=== PATIENT | male | born 1940 | race Caucasian/White ===

== ENCOUNTER 2020-03-19 08:43 | Outpatient (CLI) | payer MEDICARE, SELFPAY | END 2020-03-19 08:44 | disposition home or self-care (01) | LOC: ANHCOVIDDT 08:44 | PROVIDERS: PCP Internal Medicine; Visit Provider Internal Medicine Gastroenterology | DX: Z01.818 Encounter for other preprocedural examination (principal); Z11.59 Encounter for screening for other viral diseases | CPT/HCPCS: 87635; U0003 ==

== ENCOUNTER 2020-03-22 02:04 | Day surgery (SDC) | payer MEDICARE, SELFPAY ==
[2020-03-19 11:11] VITALS: BMI 24.4
[2020-03-22 07:54] VITALS: BP 135/75; PULSE 80; RESP 18; TEMP 36.6; O2SAT 100
--- NOTE | 2020-03-22 07:56 | WPDGICN ---
Assessment and Plan Assessment and plan (1) History of colon polyps: Code(s): Z86.010 - Personal history of colonic polyps Status: Acute Assessment and Plan: Surveillance colonoscopy advised at this time period has been 5 years since last exam. Colonoscopy at 5 year intervals is advised. (2) Right inguinal hernia: Code(s): K40.90 - Unilateral inguinal hernia, without obstruction or gangrene, not specified as recurrent Status: Acute Assessment and Plan: Patient now has some swelling in the right inguinal area previous hernia repair in this area was noted. Plan is for surgical follow-up. GI Consult Note Consult date/time: 03/22/20 07:56 HPI: Bentley Atkinson is a 79 year old male Seen in evaluation at the request Dr. Michel Boogie. Patient has a history of colon polyps. Presents today for follow-up colonoscopy. His current weight appetite bowel movements are normal. He denies abdominal pain he denies any bleeding. His bowel habits are regular. Last colonoscopy was in 2013. Family history is noncontributory patient's past history is significant for right inguinal hernia repair. Review of Systems Review of Systems: All systems reviewed & are unremarkable except as noted in HPI and below Meds Home Medications and Allergies Home Medications Medication Instructions Recorded Confirmed Type ascorbic acid (vitamin C) [Vitamin 1 g PO DAILY 03/19/20 03/19/20 History C] ibuprofen 600 mg PO PRN PRN 03/19/20 03/19/20 History icosapent ethyl [Vascepa] 1 g PO BID 03/19/20 03/19/20 History lisinopril 20 mg PO BID 03/19/20 03/19/20 History simvastatin 20 mg PO HS 03/19/20 03/19/20 History Allergies Allergy/AdvReac Type Severity Reaction Status Date / Time No Known Allergies Allergy Mild Unverified 03/22/20 07:51 Exam Narrative: Exam Narrative: Physical exam reveals patient to be alert. Oriented x3. He is anicteric. Lungs are clear to auscultation and percussion. Heart is without murmur or extra sounds. Abdominal exam bowel sounds are present soft nontender with no organomegaly. He had his have some mild swelling in the right inguinal area. Digital external rectal exam is normal.
[2020-03-22] MEDS: LACTATED RINGERS 1,000 ML 150 ML IV CONT (08:21)
--- NOTE | 2020-03-22 08:28 | WPDANESEPPF ---
Anes - Initial Pre Proc Eval Procedure: Operation Date: 03/22/20 09:00 Proposed Procedures p Screening Colonoscopy - Federico Taveras MD Date/Time: 03/22/20 08:28 Surgeon: Federico Taveras MD Pre Op Diagnosis: Hx Colon Polyps Patient Data Age: 79 Gender: M Height: 1.75 m Weight: 72.4 kg Last Vital Signs Temp 36.6 C 03/22/20 07:54 Pulse 80 03/22/20 07:54 Resp 18 03/22/20 07:54 BP 135/75 03/22/20 07:54 Pulse Ox 100 03/22/20 07:54 Allergies Allergy/AdvReac Type Severity Reaction Status Date / Time No Known Allergies Allergy Mild Unverified 03/22/20 07:51 Home Medications Medication Instructions Recorded Confirmed Type ascorbic acid (vitamin C) [Vitamin 1 g PO DAILY 03/19/20 03/19/20 History C] ibuprofen 600 mg PO PRN PRN 03/19/20 03/19/20 History icosapent ethyl [Vascepa] 1 g PO BID 03/19/20 03/19/20 History lisinopril 20 mg PO BID 03/19/20 03/19/20 History simvastatin 20 mg PO HS 03/19/20 03/19/20 History Patient hx anesthesia problems: none Family hx anesthesia problems: none [facility] Past Medical History Medical History (Updated 03/22/20 @ 08:28 by Jaime Acosta DO) History of gastric ulcer History of skin cancer Hyperlipidemia Hypertension Social History Social History (Updated 03/22/20 @ 08:28 by Jaime Acosta DO) Smoking status: Former smoker Anes - Eval Final PreProcedure Day of Procedure 03/22/20 08:28 Patient weight: normal Heart: regular rate and rhythm Lungs: clear to auscultation and normal air movement Airway: Mallampati scale class II Neurological: alert and oriented Last oral intake: >/= 8 hours ASA classification: III Emergent: no Anesthetic plan: proceed Anesthesia type and monitoring: general GIVS and standard monitoring Informed Consent: The patient's anesthetic plan and its attendant risks and benefits were discussed with the patient/family/POA. Questions were solicited and answers provided to the satisfaction of the patient/family/POA.
[2020-03-22 09:14] VITALS: BP 87/55; PULSE 63; RESP 16; O2SAT 98
[2020-03-22 09:24] VITALS: BP 91/55; PULSE 61; RESP 24; O2SAT 98
[2020-03-22 09:34] VITALS: BP 110/65; PULSE 63; RESP 21; O2SAT 100
[2020-03-22 09:44] VITALS: BP 130/79; PULSE 55; RESP 20; O2SAT 100
== END 2020-03-22 09:59 | disposition home or self-care (01) ==
PROVIDERS: PCP Internal Medicine; Visit Provider Internal Medicine Gastroenterology
PROC: 0DJD8ZZ Inspection of Lower Intestinal Tract, Via Natural or Artificial Opening Endoscopic (ICD-10-PCS; CPT 45378; principal; 2020-03-22 09:00)
DX: Z12.11 Encounter for screening for malignant neoplasm of colon (principal); D12.3 Benign neoplasm of transverse colon; D12.2 Benign neoplasm of ascending colon; K63.5 Polyp of colon; K64.8 Other hemorrhoids; I10 Essential (primary) hypertension; E78.5 Hyperlipidemia, unspecified; Z87.11 Personal history of peptic ulcer disease; Z85.828 Personal history of other malignant neoplasm of skin; Z87.891 Personal history of nicotine dependence
CPT/HCPCS: 45385; 87635; 88305; C9803; J2704; J7120; U0003

== ENCOUNTER 2021-02-04 13:33 | Outpatient (CLI) | payer MEDICARE, SELFPAY | END 2021-02-04 13:34 | disposition home or self-care (01) | LOC: ANHAUDASC 13:35 | PROVIDERS: PCP Internal Medicine; Visit Provider Nurse Practitioner Family | DX: H90.3 Sensorineural hearing loss, bilateral (principal) | CPT/HCPCS: 92557; 92567 ==

== ENCOUNTER 2021-04-08 08:00 | Outpatient (RCR) | payer MEDICARE, SELFPAY | END 2021-06-04 23:59 | disposition home or self-care (01) | LOC: ANHAUDASC 08:00 | PROVIDERS: PCP Internal Medicine; Visit Provider Nurse Practitioner Family | DX: Z46.1 Encounter for fitting and adjustment of hearing aid (principal) | CPT/HCPCS: 99199; V5261 ==

== ENCOUNTER 2021-06-07 12:11 | Emergency (ER) | payer MEDICARE, SELFPAY ==
--- NOTE | ~2021-06-07 | XR_ITS ---
EXAMINATION: XR wrist RT min 3V DATE: 06/07/2021 13:07 INDICATION: Ulnar-sided right wrist pain post twisting injury TECHNIQUE: Posteroanterior, ulnar deviation, oblique, and lateral views of the right wrist were obtai narcisa. COMPARISON: none FINDINGS: 2 mm ulnar positive variance. Likely old healed fracture of the distal right radius with neutral tilt of the distal articular surface. Additional likely chronic nonunited, nondisplaced ulnar styloid avu lsion fracture. Alignment is otherwise normal. No acute fracture identified. Polyarticular osteoarthr itis, severe at the first carpometacarpal and second and third metacarpophalangeal joints, moderate s everity at the triscaphe joint and mild at the distal radioulnar, radiocarpal, first metacarpophalang eal and first interphalangeal joints. There are some flattening of the articular surfaces at the head s of the second and third metacarpals. Diffuse osteopenia. Soft tissues are unremarkable. IMPRESSION: 1. 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 No acute osseous abnormality. Reviewed, dictated and finalized at location A. IMPRESSION: 1. 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 No acute osseous abnormality.
[2021-06-07 12:14] VITALS: BP 159/84; PULSE 84; RESP 16; TEMP 37; O2SAT 98
--- NOTE | 2021-06-07 13:27 | ED.UPPEXIN ---
HPI - Extremity Injury (Upper) General Chief Complaint: Extremity Injury, Upper Stated Complaint: right wrist injury Time Seen by Provider: 06/07/21 12:18 Source: RN notes reviewed History of Present Illness HPI narrative: Patient presents to emergency room from home for right wrist pain. Patient states proximally 2 hours prior to arrival he was using a power saw when it became locked and twisted his wrist he denies directly striking the wrist but just states it was twisted and had pain in the lateral wrist since that time he denies any other injury denies any numbness or tingling in the extremity states he took no medication for pain Related Data Home Medications Medication Instructions Recorded Confirmed ascorbic acid (vitamin C) [Vitamin 1 g PO DAILY 03/19/20 03/19/20 C] ibuprofen 600 mg PO PRN PRN 03/19/20 03/19/20 icosapent ethyl [Vascepa] 1 g PO BID 03/19/20 03/19/20 lisinopril 20 mg PO BID 03/19/20 03/19/20 simvastatin 20 mg PO HS 03/19/20 03/19/20 Allergies Allergy/AdvReac Type Severity Reaction Status Date / Time No Known Allergies Allergy Mild Verified 06/07/21 13:18 Review of Systems Review of Systems: Gen.: Denies fevers or chills Musculoskeletal: See HPI Neuro: Denies numbness, tingling, weakness Skin: Denies rash Endo: Denies DM PMFSH Past Medical History Medical History History of gastric ulcer History of skin cancer Hyperlipidemia Hypertension Social History Social History Smoking status: Former smoker Exam Narrative: APPEARANCE: No acute distress, nontoxic, resting in bed Eyes: EOMI HEENT: Normocephalic, atraumatic, RESPIRATORY: No respiratory distress MUSCULOSKELETAl: Tender palpation of the right lateral wrist with mild swelling present no tenderness over the medial wrist full flexion-extension of the wrist with pain with extension of the wrist full flexion-extension of all 5 MCP joints, radial pulse 2+ neurovascular intact NEURO: Awake and alert. Following commands, speech normal, no focal deficits SKIN:: Warm, dry. Normal Color no rash or lesions Course Course Emergency Course: Discussed with patient results of workup and diagnosis. Discussed need for follow-up with primary care, proper use of medication, and reasons to return to the emergency department. Patient understands and agrees to current treatment plan Vital Signs Vital signs: Vital Signs Temperature 98.6 F 06/07/21 12:14 Pulse Rate 84 06/07/21 12:14 Respiratory Rate 16 06/07/21 12:14 Blood Pressure 159/84 H 06/07/21 12:14 Pulse Oximetry 98 06/07/21 12:14 Temperature 98.6 F 06/07/21 12:14 Pulse Rate 84 06/07/21 12:14 Respiratory Rate 16 06/07/21 12:14 Blood Pressure 159/84 H 06/07/21 12:14 Pulse Oximetry 98 06/07/21 12:14 MDM - Extremity Injury (Upper) Imaging Data Radiologist's impression: ITS Impressions Wrist X-Ray 06/07/21 13:11 IMPRESSION: 1. 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 No acute osseous abnormality. Discharge Plan Discharge Clinical Impression: Right wrist sprain Patient Disposition: Home, Self-Care Condition: Stable Instructions: Antibiotic Form, Wrist Sprain (ED) Additional Instructions: Return for increasing pain numbness or tingling in the extremities or any other symptoms of concern Prescriptions: New ibuprofen [IBU] 600 mg tablet 600 mg PO Q6H PRN (Reason: pain) Qty: 12 RF: 0 No Action ascorbic acid (vitamin C) [Vitamin C] 1,000 mg Tablet 1 g PO DAILY RF: 0 lisinopril 20 mg tablet 20 mg PO BID RF: 0 simvastatin 20 mg tablet 20 mg PO HS RF: 0 ibuprofen 600 mg tablet 600 mg PO PRN PRN (Reason: Pain) RF: 0 icosapent ethyl [Vascepa] 1 gram capsule 1 g PO BID RF: 0 Follow-up/Referrals: Keagan,MD Michel [P
[2021-06-07] MEDS: IBUPROFEN 600 MG TABLET PO (13:47)
[2021-06-07 14:00] VITALS: BP 128/82; PULSE 80; RESP 18; O2SAT 100
== END 2021-06-07 14:00 | disposition home or self-care (01) ==
LOC: ANHED 13:45
PROVIDERS: Emergency Provider Emergency Medicine; PCP Internal Medicine
DX: S63.501A Unspecified sprain of right wrist, initial encounter (principal); E78.5 Hyperlipidemia, unspecified; I10 Essential (primary) hypertension; Z87.891 Personal history of nicotine dependence; Z85.828 Personal history of other malignant neoplasm of skin; M19.031 Primary osteoarthritis, right wrist; X50.9XXA Other and unspecified overexertion or strenuous movements or postures, initial encounter
CPT/HCPCS: 73110; 99283; A9270

== ENCOUNTER 2021-10-03 10:52 | Outpatient (RCR) | payer SELFPAY | END 2022-01-01 23:59 | disposition home or self-care (01) | LOC: ANHAUDASC 10:52 | PROVIDERS: PCP Internal Medicine; Visit Provider Internal Medicine | DX: Z46.1 Encounter for fitting and adjustment of hearing aid (principal) | CPT/HCPCS: 99199 ==

== ENCOUNTER 2023-10-21 12:50 | Outpatient (RCR) | payer MEDICARE, SELFPAY | END 2024-01-19 23:59 | disposition home or self-care (01) | LOC: ANHAUDASC 12:50 | PROVIDERS: PCP Internal Medicine; Visit Provider Internal Medicine | DX: Z46.1 Encounter for fitting and adjustment of hearing aid (principal) | CPT/HCPCS: V5014 ==

== ENCOUNTER 2023-12-12 09:44 | Emergency (ER) | payer MEDICARE, SELFPAY ==
[2023-12-12] VITALS (11 sets, daily range): BP systolic 97–138; BP diastolic 58–77; PULSE 57–75; RESP 13–24; TEMP 36.6; O2SAT 98–100
--- NOTE | ~2023-12-12 | CT_ITS ---
EXAMINATION: CT brain wo con INDICATION: Headache COMPARISON: None TECHNIQUE: Standard unenhanced head CT. The dose-length product (DLP) was 605.33 mGy-cm. The mA was a djusted according to patient size. Iterative reconstruction technique was employed. FINDINGS: No acute intraparenchymal hemorrhage. No evidence of mass lesion. No evidence of acute infa rction. There is moderate periventricular and subcortical hypodensity probably related to small vesse l ischemic disease. There is mild prominence of the sulci and ventricles related to cerebral atrophy. Intracranial calcified cerebral atherosclerosis is noted. No extra-axial collections. No mass effect or midline shift. The orbits and soft tissues are unremarkable. The visualized sinuses and mastoid a ir cells are well aerated. IMPRESSION: 1. No acute intracranial abnormality. 2. Age related findings. Reviewed, dictated and finalized at location F. K UP ASSEMBLER
--- NOTE | ~2023-12-12 | XR_ITS ---
EXAMINATION: XR chest 1V portable INDICATION: Transient alteration of awareness TECHNIQUE: Portable AP chest at 1215 hours COMPARISON: None available FINDINGS: There are minimal airspace opacities of the lung bases. No pleural effusion or pneumothorax . The cardiac mediastinal silhouette is normal. There is ectasia of the thoracic aorta. IMPRESSION: 1. Minimal airspace opacities of the lung bases, consistent with atelectasis versus pneumonia. Reviewed, dictated and finalized at location F. T OPERATIONS VICE PRESIDENT IMPRESSION: 1. Minimal airspace opacities of the lung bases, consistent with atelectasis ve rsus pneumonia.
--- NOTE | 2023-12-12 09:56 | ECG_ITS ---
Measurements Intervals [place] Rate: 65 P: 62 NE: 225 QRS: 15 QRSD: 80 T: 46 QT: 394 QTc: 411 Interpretive Statements SINUS RHYTHM WITH FIRST DEGREE AV BLOCK ABNORMAL ECG NO PREVIOUS ECG AVAILABLE FOR COMPARISON Electronically Signed On 12-12-2023 10:21:08 FORESTRY HUNTER by Elkin Russell M.D.
[2023-12-12 10:25] LABS: Hematocrit 44.6 % (42.0-52.0); Mean Corpuscular HGB Conc 31.4 g/dl (32-36); Mean Corpuscular Volume 86.1 fl (80-100); Mean Platelet Volume 10.7 fl (7.4-10.4); Platelet Count Result 144 k/mm3 (150-375); Red Blood Count 5.18 M/mm3 (4.6-6.20); Red Cell Distribution Width 14.9 % (11.5-14.5); White Blood Count 5.2 K/mm3 (4.5-10.0)
[2023-12-12 10:41] LABS: Alanine Aminotransferase 21 U/L (6-50); Albumin Level 3.9 g/dL (3.5-5.1); Alkaline Phosphatase 72 U/L (38-126); Anion Gap 7 mmol/L (8-16); Aspartate Amino Transferase 31 U/L (17-59); Bilirubin,Total 0.5 mg/dL (0.2-1.3); Blood Urea Nitrogen 22 mg/dL (9-20); Calcium 9.1 mg/dL (8.4-10.2); Carbon Dioxide 26 mmol/L (22-30); Chloride 104 mmol/L (98-107); Estimated CRCL calculation 48 ml/min; Estimated Glomerular Filt Rate > 60; Glucose 105 mg/dL (65-110); Potassium 4.1 mmol/L (3.4-5.0); Sodium 137 mmol/L (137-145)
[2023-12-12 10:49] LABS: Band Neutrophils Percent 2 % (0-6); Eosinophils Absolute Manual 0.05 K/mm3 (0.02-0.5); Eosinophils Percent Manual 1 % (0-4); Lymphocytes Absolute Manual 1.82 K/mm3 (1.1-4.5); Monocytes Absolute Manual 1.14 K/mm3 (0.1-0.90); Monocytes Percent Manual 22 % (3-9); Neutrophils Absolute Manual 2.18 K/mm3 (1.3-6.7); Neutrophils Percent Manual 40 % (46-73); Schistocytes None Seen (NORMAL); Total Cells Counted 100
[2023-12-12 10:50] LABS: Large Platelets Present
[2023-12-12 12:32] LABS: Magnesium 2.5 mg/dL (1.6-2.3)
--- NOTE | 2023-12-12 12:36 | ED.SYNCOPE ---
HPI - Syncope General Chief Complaint: Syncope Stated Complaint: syncopal event Time Seen by Provider: 12/12/23 12:01 Source: patient and family Limitations: no limitations and dementia History of Present Illness HPI narrative: Patient is an 83-year-old male presents to the emergency department complaining of syncope. Patient states around 7:30 a.m. this morning he was sitting down watching the news any got up to go to the bedroom and while walking to the bedroom he began to feel lightheaded and proceeded to pass out, was in the other room and heard him fall to the ground, patient promptly woke back up and immediate return to his baseline, no seizure activity reported, no history of seizures. Patient has been ambulatory since the event. Patient denies any pain anywhere. Patient denies any recent illness, new or change medications, chest pain, difficulty breathing, abdominal pain, nausea, vomiting, diarrhea, melena, hematochezia, urinary discomfort, numbness, weakness, lower extremity swelling, sore throat, nasal congestion, fever, headache, vision changes, difficulty swelling, dysphonia, confusion. Patient admits to having darker colored urine and has been not adequately being hydrated the patient is to consider compartment coffee prior to going out and drinks caffeine often. Patient is to history of some the past she had 3 episodes last year around this time was found to have a bleeding ulcer that was considered to be the likely cause. Patient denies history of abnormal heart rhythms but does have a history of right Holter monitor when he was having syncopal episodes in the past. Patient admits to small scrape over his left elbow without any significant discomfort. Patient does not know when his last tetanus shot was. Related Data Home Medications Medication Instructions Recorded Confirmed donepezil 10 mg tablet mg 12/12/23 ferrous sulfate 325 mg (65 mg mg 12/12/23 iron) tablet lisinopril 20 mg tablet mg 12/12/23 simvastatin 20 mg tablet mg 12/12/23 12/12/23 Allergies Allergy/AdvReac Type Severity Reaction Status Date / Time aspirin Allergy Ulcers Verified 12/12/23 10:00 Review of Systems Review of Systems: A 10 system review of systems was completed on the patient and is negative except for what is stated in the HPI. Nursing and ancillary documentation was reviewed. [facility] Past Medical History Medical History History of gastric ulcer History of skin cancer Hyperlipidemia Hypertension Social History Social History Smoking status: Former smoker Comments At time of signature, I have reviewed and agree with nursing past medical, surgical, social and family history unless otherwise noted. Please see the nursing chart for further information. There is no relevant family history pertinent to the presenting complaint. Exam Narrative: CONST: No acute distress. Well nourished. HENMT: Head is normocephalic and atraumatic. Dry mucous membranes. No posterior oropharynx erythema. EYES: No conjunctival icterus, injection, or pallor. PERRL. No nystagmus. NECK: No meningeal signs. No JVD. RESP: Able to speak in full sentences. Normal respiratory effort. CTAB. CARDIO: Regular rate. Regular rhythm. 2+ DP and radial pulses bilaterally. GI: Nondistended. No tenderness to palpation. Soft. : No CVA tenderness to palpation. SKIN: No rashes. Small hemostatic abrasion present over the left elbow without bony tenderness to palpation or decreased range of motion. NEURO: Oriented x3. Moves all extremities. No focal neurological deficits. Motor strength is 5/5 in all 4 extremities. Sensation intact to light touch throughout all 4 extremities. Cranial nerves 2-12 intact. EXTREM/MSK/BACK: No pedal edema. No midline vertebral tenderness to palpation or step-offs. PSYCH: Normal affect. Cou
[2023-12-12 12:38] LABS: Appearance Urine Clear (Clear); Bilirubin Urine Negative (Negative); Blood Urine Negative (Negative); Color Urine Yellow (Yellow); Glucose Urine UA Negative (Negative); Ketones Urine Negative (Negative); Leukocyte Esterase Ur Negative LEU/UL (Negative); Nitrate Urine Negative (Negative); Protein Urine Negative (Negative); Specific Grav Ur 1.005 (1.001-1.035); Urobilinogen Urine 0.2 mg/dL (<2.0)
[2023-12-12 12:41] LABS: NT Pro B Type Natriuretic Pept 169 pg/mL (19.9-100)
[2023-12-12 12:42] LABS: Add Urine Microscopic? NO
[2023-12-12 12:47] LABS: Troponin I < 0.012 ng/mL (0.000-0.034)
[2023-12-12] MEDS: SODIUM CHLORIDE 0.9% IV 1,000 ML 999 ML IV CONT (12:49)
[2023-12-12] MEDS: TETANUS,DIPHTHERIA,AC PERTUSSIS ADULT (0.5 ML) BOOSTRIX IM (12:54)
--- NOTE | 2023-12-12 12:56 | PC.NURSE ---
Pt to CT scan via stretcher at this time.
[2023-12-12 13:13] LABS: Influenza A QL RT-PCR Negative (Negative); Influenza B QL RT-PCR Negative (Negative); RSV RNA, RT-PCR Negative (Negative); SARS-CoV-2 RNA PCR Negative (Negative)
== END 2023-12-12 14:37 | disposition home or self-care (01) ==
PROVIDERS: Emergency Medicine; Emergency Provider Student in an Organized Health Care Education/Training Program; PCP Internal Medicine
DX: R55 Syncope and collapse (principal); S51.012A Laceration without foreign body of left elbow, initial encounter; E78.5 Hyperlipidemia, unspecified; I10 Essential (primary) hypertension; Z79.899 Other long term (current) drug therapy; Z85.828 Personal history of other malignant neoplasm of skin; Z87.891 Personal history of nicotine dependence; Z23 Encounter for immunization; Z20.822 Contact with and (suspected) exposure to COVID-19; W19.XXXA Unspecified fall, initial encounter
CPT/HCPCS: 36415; 70450; 71045; 80053; 81003; 83735; 83880; 84484; 85025; 87637; 90471; 90715; 93005; 96360; 99284; J7030

== ENCOUNTER 2024-02-11 10:50 | Outpatient (CLI) | payer MEDICARE, SELFPAY | END 2024-02-11 10:51 | disposition home or self-care (01) | LOC: ANHAUDASC 10:51 | PROVIDERS: PCP Internal Medicine; Visit Provider Otolaryngology | DX: H91.90 Unspecified hearing loss, unspecified ear (principal) | CPT/HCPCS: 99199 ==

== ENCOUNTER 2024-02-20 00:32 | Emergency (ER) | payer MEDICARE, SELFPAY ==
--- NOTE | ~2024-02-20 | XR_ITS ---
XR chest 2V 02/20/2024 01:20 Indication: Chest pain Procedure: 2 view chest Comparison: 12/12/2023 Findings: The lungs are hyperinflated which is consistent with, but not diagnostic of chronic obstruc tive pulmonary disease. No focal air space disease, pulmonary edema, pleural effusion or suspected pn eumothorax. There is atherosclerosis and ectasia of the aorta. There is evidence of chronic granuloma tous disease. Impression: 1: No acute cardiopulmonary disease. Reviewed, dictated and finalized at location A. Impression: 1: No acute cardiopulmonary disease.
[2024-02-20 00:48] VITALS: BP 163/78; PULSE 66; RESP 18; TEMP 36.1; O2SAT 100
--- NOTE | 2024-02-20 00:56 | ECG_ITS ---
SEE SCANNED COPY FOR CONFIRMED REPORT MTDD
[2024-02-20 01:07] LABS: Hematocrit 46.5 % (42.0-52.0); Hemoglobin 14.8 g/dL (14.0-18.0); Mean Corpuscular HGB Conc 31.8 g/dl (32-36); Mean Corpuscular Hemoglobin 27.4 pg (26-34); Mean Corpuscular Volume 86.1 fl (80-100); Mean Platelet Volume 9.8 fl (7.4-10.4); Platelet Count Result 143 k/mm3 (150-375); Red Cell Distribution Width 14.3 % (11.5-14.5); White Blood Count 5.1 K/mm3 (4.5-10.0)
[2024-02-20 01:21] LABS: Alanine Aminotransferase 18 U/L (6-50); Albumin Level 4.4 g/dL (3.5-5.1); Alkaline Phosphatase 85 U/L (38-126); Anion Gap 9 mmol/L (4-12); Aspartate Amino Transferase 28 U/L (17-59); Bilirubin,Total 0.5 mg/dL (0.2-1.3); Blood Urea Nitrogen 17 mg/dL (9-20); Calcium 9.5 mg/dL (8.4-10.2); Carbon Dioxide 25 mmol/L (22-30); Chloride 107 mmol/L (98-107); Estimated CRCL calculation 44 ml/min; Estimated Glomerular Filt Rate > 60; Glucose 104 mg/dL (65-110); Lipase 94 U/L (23-300); Potassium 4.2 mmol/L (3.4-5.0); Sodium 141 mmol/L (137-145)
[2024-02-20 01:22] LABS: INR 1.1; Prothrombin Time 14.3 Seconds (11.1-14.7)
[2024-02-20 01:23] LABS: Partial Thromboplastin Time 40.2 Seconds (22.3-36.8)
[2024-02-20 01:32] LABS: Band Neutrophils Percent 3 % (0-6); Basophils Absolute Manual 0.05 K/mm3 (0.0-0.1); Basophils Percent Manual 1 % (0-1); Eosinophils Percent Manual 2 % (0-4); Lymphocytes Absolute Manual 1.93 K/mm3 (1.1-4.5); Lymphocytes Percent Manual 38 % (18-44); Monocytes Absolute Manual 1.42 K/mm3 (0.1-0.90); Monocytes Percent Manual 28 % (3-9); Neutrophils Absolute Manual 1.58 K/mm3 (1.3-6.7); Neutrophils Percent Manual 28 % (46-73); Total Cells Counted 100
[2024-02-20 01:33] LABS: Anisocytosis 1+; Ovalocytes 1+; Platelet Estimate Slightly Decreased (Adequate); Schistocytes None Seen; Troponin I < 0.012 ng/mL (0.000-0.034)
--- NOTE | 2024-02-20 01:45 | ED_ITS ---
HPI - Arrhythmia/Palpitations General Chief Complaint: Chest Pain Stated Complaint: chest pain Time Seen by Provider: 02/20/24 01:17 History of Present Illness HPI narrative: This is an 83-year-old male, with history of hypertension, who presents emergency department complaining of palpitations. The patient states he was singing karaoke and drinking caffeinated coffee this evening, when after lying down he felt his heart racing. He denies associated pain though had some nausea. He denies lightheadedness or difficulty breathing. He denies any recent change in in his medication or recent illness. He has no other complaints at this time. Related Data Home Medications Medication Instructions Recorded Confirmed donepezil 10 mg tablet mg 12/12/23 02/11/24 ferrous sulfate 325 mg (65 mg mg 12/12/23 02/11/24 iron) tablet lisinopril 20 mg tablet mg 12/12/23 02/11/24 simvastatin 20 mg tablet mg 12/12/23 02/11/24 aspirin 81 mg tablet,delayed 81 mg PO DAILY 02/11/24 02/11/24 release memantine 10 mg tablet 10 mg PO QPM 02/11/24 02/11/24 Allergies Allergy/AdvReac Type Severity Reaction Status Date / Time aspirin Allergy Ulcers Verified 02/11/24 12:05 Review of Systems Review of Systems: CONSTITUTIONAL: Denies fever, chills, or sweats. ENT: Denies rhinorrhea, congestion, sore throat, or otalgia. CARDIOVASCULAR: Palpitations. Denies chest pain, or edema. RESPIRATORY: Denies cough or dyspnea. GASTROINTESTINAL: Denies abdominal pain, nausea, vomiting, or diarrhea. GENITOURINARY: Denies dysuria or hematuria. SKIN: Denies rash or itching. MUSCULOSKELETAL: Denies back pain, joint pain, or myalgia. NEUROLOGIC: Denies headache, numbness, dizziness, or weakness. PSYCHIATRIC: Denies anxiety or depression. [facility] Past Medical History Medical History History of gastric ulcer History of skin cancer Hyperlipidemia Hypertension Social History Social History Social History: Caffeine- daily Smoking status: Never smoker Alcohol intake: never Substance use: never Substance use type: does not use Lack of Transportation: No Lack of Food: Never True Current Housing: I Have Housing Concerned About Future Housing: No Difficulty Paying Gas/Electric Bills: No Difficulty Paying for Meds: No Currently Unemployed: No Education: High School Diploma/GED Difficulty w/ Childcare or Family Care: No Living arrangements: with family Occupation/Education: retired Exam Narrative: GENERAL: Well-developed, well-nourished, and in no acute distress. HEAD: Normocephalic, atraumatic. EYES: PERRLA and EOMI. Xanthelasma ENT: Nares clear, no rhinorrhea or epistaxis. Mucous membranes moist. Oropharynx without tonsillar hypertrophy exudate or other lesions. NECK: Supple. No adenopathy or masses. No carotid bruits or JVD CHEST: Clear to auscultation. No respiratory distress. No wheezes rales or rhonchi HEART: Regular rate and rhythm. No murmur heard. Normal peripheral pulses. ABDOMEN: Soft, nontender, nondistended, normal active bowel sounds. EXTREMITIES: Normal range of motion. No edema. SKIN: Warm, dry, no rash. NEURO: Alert and oriented x3. No focal deficit. Moving all 4 limbs spontaneously PSYCH: Normal mood and affect. Course Course Emergency Course: 04:30 - CBC unremarkable. Chemistries demonstrate mildly elevated magnesium of 2.5 but otherwise unremarkable. Coags demonstrate slightly elevated PTT of 40. EKG not concerning for ischemia. Troponin negative x2. Chest x-ray by my aeration not concerning for acute cardiopulmonary process. There appeared to be increased hilar densities, that have not changed compared to previous x-rays. I suspect the patient's symptoms are related to palpitations from excessive caffe ine use. After observation in the emergency department the patient felt improved and had no concerning findings on a event specialist food demonstrator. Will discharge. I discussed the findings and recommendations with the patient. Discussed return and emergency precautions including signs/symptoms of ACS respiratory distress. The patient voiced understanding and agreement with the plan. All questions answered to his satisfaction. Vital Signs Vital signs: Vital Signs Temperature 97 F L 02/20/24 00:48 Pulse Rate 66 02/20/24 00:48 Respiratory Rate 18 02/20/24 00:48 Blood Pressure 163/78 H 02/20/24 00:48 Pulse Oximetry 100 02/20/24 00:48 Oxygen Delivery Room Air 02/20/24 00:48 Temperature 97 F L 02/20/24 00:48 Pulse Rate 58 L 02/20/24 02:55 Respiratory Rate 16 02/20/24 02:55 Blood Pressure 113/65 02/20/24 02:55 Pulse Oximetry 96 02/20/24 02:55 Oxygen Delivery Room Air 02/20/24 00:48 MDM - Arrhythmia/Palpitations MDM Narrative Medical decision making narrative: Plan: Labs, imaging, EKG, cardiac monitoring, reassess Differential Diagnosis Differential diagnosis: Likely palpitations, sinus tachycardia, artial fibrillation and other (Arrhythmia, caffeine side-effect, pneumothorax, metabolic abnormality, other) Lab Data 02/20/24 00:58 02/20/24 00:58 Labs: Lab Results 02/20/24 02/20/24 Range/Units 00:58 03:55 WBC 5.1 (4.5-10.0) K/mm3 RBC 5.40 (4.6-6.20) M/mm3 Hgb 14.8 (14.0-18.0) g/dL Hct 46.5 (42.0-52.0) % MCV 86.1 (80-100) fl MCH 27.4 (26-34) pg MCHC 31.8 L (32-36) g/dl RDW 14.3 (11.5-14.5) % Plt Count 143 L (150-375) k/mm3 MPV 9.8 (7.4-10.4) fl Immature Gran % (Auto) Not Reportable Neut % (Auto) Not Reportable Lymph % (Auto) Not Reportable [place] % (Auto) Not Reportable Eos % (Auto) Not Reportable Baso % (Auto) Not Reportable Lymph # (Auto) Not Reportable [place] # (Auto) Not Reportable Eos # (Auto) Not Reportable Baso # (Auto) Not Reportable Abs Immat Gran (auto) Not Reportable Absolute Neuts (auto) Not Reportable Absolute Nucleated RBC Not Reportable Total Counted 100 Neutrophils % (Manual) 28 L (46-73) % Band Neutrophils % 3 (0-6) % Lymphocytes % (Manual) 38 (18-44) % Monocytes % (Manual) 28 H (3-9) % Eosinophils % (Manual) 2 (0-4) % Basophils % (Manual) 1 (0-1) % Nucleated RBC % Not Reportable Abs Neuts (Manual) 1.58 (1.3-6.7) K/mm3 Abs Lymphs (Manual) 1.93 (1.1-4.5) K/mm3 Abs Monocytes (Manual) 1.42 H (0.1-0.90) K/mm3 Absolute Eos (Manual) 0.10 (0.02-0.50) K/mm3 Abs Basophils (Manual) 0.05 (0.0-0.1) K/mm3 Platelet Estimate Slightly decreased (Adequate) Anisocytosis 1+ Ovalocytes 1+ Schistocytes None seen PT 14.3 (11.1-14.7) Seconds INR 1.1 APTT 40.2 H (22.3-36.8) Seconds Sodium 141 (137-145) mmol/L Potassium 4.2 (3.4-5.0) mmol/L Chloride 107 (98-107) mmol/L Carbon Dioxide 25 (22-30) mmol/L Anion Gap 9 (4-12) mmol/L BUN 17 (9-20) mg/dL Creatinine 1.10 (0.7-1.3) mg/dL Estim Creat Clear Calc 44 ml/min Estimated GFR > 60 (59 - ) Glucose 104 (65-110) mg/dL Calcium 9.5 (8.4-10.2) mg/dL Magnesium 2.5 H (1.6-2.3) mg/dL Total Bilirubin 0.5 (0.2-1.3) mg/dL AST 28 (17-59) U/L ALT 18 (6-50) U/L Alkaline Phosphatase 85 (38-126) U/L Troponin I < 0.012 < 0.012 (0.000-0.034) ng/mL Total Protein 8.0 (6.3-8.2) g/dL Albumin 4.4 (3.5-5.1) g/dL Lipase 94 (23-300) U/L ECG Data EKG #1: Attestation: I personally reviewed and interpreted this ECG as follows: ECG completion date: 02/20/24 ECG completion time: 00:41 Interpretation: Sinus bradycardia, rate 59, normal axis, no ST segment elevations or T-wave inversions concerning for ischemia, first-degree AV block with FL of 218 otherwise normal intervals with QTC of 413. Compared to cardiology interpretation of EKG done in December 2023, there are no significant changes. I am unable to view the previous EKG due to technical difficulties. Discharge Plan Discharge Clinical Impression: Palpitations Patient Disposition: Home, Self-Care Condition: Stable Instructions: Antibiotic Form, Heart Palpitations (ED) Additional Instructions: You were seen in the emergency department. I suspect your symptoms are related to palpitations from caffeine the. I recommend following up with your primary care doctor. If you develop chest pain, shortness of breath, loss of consciousness, or if you have other emergent concerns for life, limb, or eyesight, return to the emergency department. Patient Language: Romanian Prescriptions: No Action memantine 10 mg tablet 10 mg PO QPM aspirin 81 mg tablet,delayed release (DR/EC) 81 mg PO DAILY donepezil 10 mg tablet lisinopril 20 mg tablet simvastatin 20 mg tablet ferrous sulfate 325 mg (65 mg iron) tablet Follow-up/Referrals: Keagan,MD Michel [Primary Care Provider] - 2 Weeks Time of Disposition: 04:59
[2024-02-20 01:57] LABS: Magnesium 2.5 mg/dL (1.6-2.3)
[2024-02-20 02:55] VITALS: BP 113/65; PULSE 58; RESP 16; O2SAT 96
--- NOTE | 2024-02-20 03:59 | ECG_ITS ---
SEE SCANNED COPY FOR CONFIRMED REPORT MTDD
[2024-02-20 04:22] LABS: Troponin I < 0.012 ng/mL (0.000-0.034)
[2024-02-20 04:58] VITALS: BP 120/70; PULSE 57; RESP 15; O2SAT 97
== END 2024-02-20 05:18 | disposition home or self-care (01) ==
PROVIDERS: Emergency Provider Preventive Medicine Aerospace Medicine; PCP Internal Medicine
DX: R00.2 Palpitations (principal); I10 Essential (primary) hypertension; E78.5 Hyperlipidemia, unspecified; Z85.828 Personal history of other malignant neoplasm of skin; Z79.82 Long term (current) use of aspirin; R00.1 Bradycardia, unspecified; I44.0 Atrioventricular block, first degree; R94.31 Abnormal electrocardiogram [ECG] [EKG]
CPT/HCPCS: 36415; 71046; 80053; 83690; 83735; 84484; 85025; 85610; 85730; 93005; 99284

== ENCOUNTER 2024-03-16 12:42 | Outpatient (CLI) | payer MEDICARE, SELFPAY | END 2024-03-16 12:43 | disposition home or self-care (01) | LOC: ANHAUDASC 12:43 | PROVIDERS: PCP Internal Medicine; Visit Provider Otolaryngology | DX: H90.3 Sensorineural hearing loss, bilateral (principal); H93.13 Tinnitus, bilateral | CPT/HCPCS: 92557; 92567 ==